=== PATIENT | male | born 1980 | race Caucasian/White ===

== ENCOUNTER 2018-05-01 00:42 | Emergency (ER) | payer SELFPAY ==
[2018-05-01] MEDS ORDERED: Adacel (T-DAP) 0.5 ML SYRINGE ONE (01:21)
[2018-05-01] MEDS ORDERED: Bacitracin Zinc 1 Packet ONE (01:43)
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
== END 2018-05-01 02:55 | disposition home or self-care (01) ==
LOC: SCSER 00:42
DX: S01.412A Laceration without foreign body of left cheek and temporomandibular area, initial encounter (principal); X99.0XXA Assault by sharp glass, initial encounter
CPT/HCPCS: 12052; 70450; 70486; 71045; 90471; 90715